=== PATIENT | female | born 2000 | race Two or more races ===

== ENCOUNTER 2022-09-02 15:53 | Emergency (ER) | payer OTHER, SELFPAY ==
[2022-09-02 17:11] VITALS: BP 105/58; PULSE 79; RESP 14; TEMP 36.4; O2SAT 98
--- NOTE | 2022-09-02 18:43 | ED.WOUNDLAC ---
HPI - Wound/Laceration General Chief Complaint: Wound/Laceration Stated Complaint: finger laceration from knife Time Seen by Provider: 09/02/22 17:22 History of Present Illness HPI narrative: 22-year-old female presents to the emergency room for evaluation of a laceration to her left third digit. Patient states that she was cutting an avocado, when the knife slipped cutting the backside of her middle finger. Patient states her tetanus status is up-to-date. Related Data Allergies Allergy/AdvReac Type Severity Reaction Status Date / Time No Known Allergies Allergy Verified 09/02/22 17:51 Review of Systems Review of Systems: CONSTITUTIONAL: Denies fever, chills, or sweats. EYES: Denies visual changes, redness, or discharge. ENT: Denies rhinorrhea, congestion, sore throat, or otalgia. CARDIOVASCULAR: Denies chest pain, palpitations, or edema. RESPIRATORY: Denies cough or dyspnea. GASTROINTESTINAL: Denies abdominal pain, nausea, vomiting, or diarrhea. GENITOURINARY: Denies dysuria or hematuria. SKIN: Reports laceration to the left third finger MUSCULOSKELETAL: Denies back pain, joint pain, or myalgia. NEUROLOGIC: Denies headache, numbness, dizziness, or weakness. PSYCHIATRIC: Denies anxiety or depression. Exam Narrative: GENERAL: Well-appearing, well-nourished, no physical limitations, and in no acute distress. HEAD: Normocephalic, atraumatic. EYES: Conjunctivae normal, PERRLA and EOMI. CHEST: Clear to auscultation. No respiratory distress. No wheezes rales or rhonchi. HEART: Regular rate and rhythm. No murmur heard. Normal peripheral pulses. EXTREMITIES: rt 3rd finger: FROM passively and actively, strength 5/5, no joint laxity to MCP joint SKIN: rt 3rd finger: 2.5 cm linear laceration to dorsal surface of base of finger. Neurovascular intact distally NEURO: No focal deficits. Alert and oriented x3. MAEW. CN's II-XI intact bilaterally, normal gait PSYCH: Cooperative. Normal mood and affect. Course Vital Signs Vital signs: Vital Signs Temperature 36.4 C L 09/02/22 17:11 Pulse Rate 79 09/02/22 17:11 Respiratory Rate 14 09/02/22 17:11 Blood Pressure 105/58 L 09/02/22 17:11 Pulse Oximetry 98 09/02/22 17:11 Oxygen Delivery Room Air 09/02/22 17:11 Temperature 36.4 C L 09/02/22 17:11 Pulse Rate 79 09/02/22 17:11 Respiratory Rate 14 09/02/22 17:11 Blood Pressure 105/58 L 09/02/22 17:11 Pulse Oximetry 98 09/02/22 17:11 Oxygen Delivery Room Air 09/02/22 17:11 Procedures Laceration Laceration 1: Date: 09/02/22 Time: 18:49 Site: upper extremity Side (If applicable): left Size (cm): 2.5 Description: linear Depth: simple, single layer Local Anesthetic: lidocaine 1% Amount of anesthesia used (mL): 5 Pre-repair: irrigated ====== Skin Level ====== Skin layer closed with: nylon Size (cm): 5-0 Number of sutures: 5 Technique: simple, interrupted ====== Subcutaneous Layer ====== ====== Muscle Layer ====== ====== Tendon Layer ====== Discharge Plan Discharge Clinical Impression: Laceration Patient Disposition: Home, Self-Care Condition: Stable Instructions: Antibiotic Form, Laceration (ED) Additional Instructions: Monitor for signs of infection which include redness, swelling, tenderness and purulent drainage. Take antibiotics as prescribed. Stitches come out in 10 days. Keep wound clean and dry and covered. Prescriptions: New cephalexin 500 mg capsule 500 mg PO Q12H 7 Days Qty: 14 0RF Follow-up/Referrals: PHYSICIAN NOT ON STAFF,NONSTAFF [Primary Care Provider] - Time of Disposition: 18:50
[2022-09-02 19:02] VITALS: BP 97/51; PULSE 64; RESP 15; O2SAT 100
== END 2022-09-02 19:04 | disposition home or self-care (01) ==
PROVIDERS: Emergency Provider Nurse Practitioner Family
DX: S61.213A Laceration without foreign body of left middle finger without damage to nail, initial encounter (principal); W26.0XXA Contact with knife, initial encounter
CPT/HCPCS: 12001; 99283

== ENCOUNTER 2023-02-20 14:56 | Emergency (ER) | payer OTHER, SELFPAY ==
[2023-02-20] VITALS (14 sets, daily range): BP systolic 108–124; BP diastolic 66–88; PULSE 78–106; RESP 12–23; TEMP 36.2; O2SAT 99–100
--- NOTE | ~2023-02-20 | XR_ITS ---
EXAMINATION: XR chest 2V DATE: 02/20/2023 16:36 INDICATION: Shortness of breath TECHNIQUE: PA and lateral views of the chest were obtained. COMPARISON: None FINDINGS: The lungs are clear with no focal airspace opacities, pulmonary edema, pleural effusion or pneumothor ax. The cardiomediastinal silhouette is normal. Mild thoracolumbar dextrocurvature. IMPRESSION: 1. No acute cardiopulmonary disease. Reviewed, dictated and finalized at location A.
--- NOTE | ~2023-02-20 | CT_ITS ---
EXAMINATION: CT soft tissue neck w con DATE: 02/20/2023 17:35 INDICATION: Neck swelling TECHNIQUE: Computed tomography (CT) of the neck was performed with 75 mL Omnipaque-350 intravenous co ntrast. Automated exposure control and iterative reconstruction technique were employed. The dose-francia gth product was 469.12 mGy-cm. COMPARISON: None FINDINGS: There is soft tissue swelling with prominent subcutaneous edema centered at the left supraclavicular region extending cephalad into the left side of the neck and caudally into the left axilla and cephal ad-most aspect of the superior mediastinum. There are multiple mildly enlarged lymph nodes in the lef t supraclavicular region and along the caudal left jugular chain. 3.3 cm enhancing left thyroid mass. Visualized mid to upper lungs are clear. No pathologically enlarged lymphadenopathy in the visualize d superior mediastinum. Visualized portion of the thoracic aorta is normal in caliber with no dissect ion. The great vessels arising from the arch and extending to the bilateral upper extremities, head a nd neck all appear normal. The trachea appears patent throughout. Normal epiglottis and prevertebral soft tissues. Bones are unremarkable. IMPRESSION: 1. Prominent soft tissue edema centered at the left supraclavicular region and extending into the the neck, left axilla and cephalad-most superior mediastinum consistent with nonspecific cellulitis. 2. Mild left supraclavicular and inferior jugular chain lymphadenopathy which is likely reactive. 3. 3.3 cm left thyroid mass. Recommend thyroid ultrasound for risk stratification. Reviewed, dictated and finalized at location A. IMPRESSION: 1. Prominent soft tissue edema centered at the left supraclavicular region and extending into the the neck, left axilla and cephalad-most superior mediastinum consistent with nonspecific cellulitis. 2. Mild left supraclavicular and inferior jugular chain lymphadenopathy which i s likely reactive. 3. 3.3 cm left thyroid mass. Recommend thyroid ultrasound for risk stratificati on.
--- NOTE | 2023-02-20 15:04 | ECG_ITS ---
Measurements Intervals [place] Rate: 93 P: 77 DE: 137 QRS: 85 QRSD: 73 T: 18 QT: 340 QTc: 425 Interpretive Statements SINUS RHYTHM NONSPECIFIC T-WAVE ABNORMALITY NO PREVIOUS ECG AVAILABLE FOR COMPARISON Electronically Signed On 02-21-2023 13:36:25 CDT by Liz Bennett M.D.
--- NOTE | 2023-02-20 15:30 | PC.NURSE ---
patient requesting a written rx if any are given out at discharge. refuse to give a pharmacy at this time
[2023-02-20 16:41] LABS: Basophils Percent Auto 0.3 % (0.2-1.2); Hematocrit 44.2 % (37.0-47.0); Hemoglobin 14.5 g/dL (12.0-15.0); Immature Granulocyte Absolute 0.06 K/mm3 (0.00-0.031); Immature Granulocyte Percent A 0.5 % (0-0.5); Lymphocytes Absolute Auto 0.94 K/mm3 (0.9-3.2); Lymphocytes Percent Auto 7.9 % (18.3-44.2); Mean Corpuscular HGB Conc 32.8 g/dl (32-36); Mean Corpuscular Hemoglobin 29.7 pg (26-34); Mean Corpuscular Volume 90.6 fl (80-100); Mean Platelet Volume 8.8 fl (7.4-10.4); Monocytes Absolute Auto 0.3 K/mm3 (0.1-0.6); Monocytes Percent Auto 2.3 % (2.6-8.5); Neutrophils Absolute Auto 10.5 K/mm3 (1.3-6.7); Platelet Count Result 281 k/mm3 (150-375); Red Blood Count 4.88 M/mm3 (4.2-5.4); Red Cell Distribution Width 13.7 % (11.5-14.5); White Blood Count 11.9 K/mm3 (4.5-10.0)
[2023-02-20 16:52] LABS: INR 0.9; Partial Thromboplastin Time 22.3 SECONDS (22.3-36.8); Prothrombin Time 12.8 Seconds (11.1-14.7)
[2023-02-20 16:55] LABS: D Dimer 0.36 ug/mL (<0.48)
[2023-02-20 16:57] LABS: Alanine Aminotransferase 110 U/L (6-35); Albumin Level 4.9 g/dL (3.5-5.1); Alkaline Phosphatase 57 U/L (38-126); Anion Gap 8 mmol/L (8-16); Aspartate Amino Transferase 78 U/L (14-36); Bilirubin,Total 0.7 mg/dL (0.2-1.3); Blood Urea Nitrogen 14 mg/dL (7-17); Calcium 9.2 mg/dL (8.4-10.2); Carbon Dioxide 26 mmol/L (22-30); Chloride 105 mmol/L (98-107); Estimated CRCL calculation 103 ml/min; Estimated Glomerular Filt Rate > 60; Glucose 102 mg/dL (65-110); Magnesium 2.2 mg/dL (1.6-2.3); Potassium 4.1 mmol/L (3.4-5.0); Sodium 139 mmol/L (137-145)
[2023-02-20 16:58] LABS: CRP 0.6 mg/dL (<1.0)
--- NOTE | 2023-02-20 17:50 | ED.NECK ---
HPI - Neck Pain/Injury General Chief Complaint: Neck Pain/Injury Stated Complaint: neck pain Time Seen by Provider: 02/20/23 15:31 Source: patient and RN notes reviewed Mode of arrival: ambulatory Limitations: no limitations History of Present Illness HPI Narrative: This is a 22 year old female with history of arrhythmia, and cardiac ablation who presents for evaluation of left neck swelling. Patient states she noticed left neck swelling and tightness today. Her swelling has improved. She reports her discomfort is worse with breathing. She reports she intermittently felt short of breath. She reports 5 years ago she had an arrhythmia that she required an ablation. She is concerned that her neck swelling has something to do with arrhythmia. Patient denies heart racing or palpitations. Related Data Allergies Allergy/AdvReac Type Severity Reaction Status Date / Time No Known Allergies Allergy Verified 02/20/23 15:28 Review of Systems Constitutional: Constitutional: Denies weakness Cardiovascular: Cardiovascular: Denies syncope, Denies rapid heart rate, Denies irregular heart rhythm, Denies leg edema and Denies dyspnea Respiratory: Respiratory: Denies chest congestion, Denies hemoptysis, Denies excessive phlegm production and Reports dyspnea Gastrointestinal: Gastrointestinal: Denies abdominal pain, Denies hematochezia, Denies diarrhea and Denies vomiting Genitourinary: Genitourinary: Denies hematuria and Denies dysuria Musculoskeletal: Musculoskeletal: Denies joint swelling, Denies loss of height and Denies muscle weakness Neurologic: Denies syncope, Denies focal weakness and Denies weakness PMFSH Past Medical History Medical History (Updated 02/21/23 @ 00:00 by [facility]) Arrhythmia Surgical History Surgical History (Updated 02/20/23 @ 18:09 by Anamaria Hinson MD) H/O cardiac radiofrequency ablation Social History Social History (Updated 02/20/23 @ 18:09 by Anamaria Hinson MD) Smoking status: Never smoker Exam Const: General: no acute distress and alert Nutritional Appearance: well nourished Orientation/consciousness: patient oriented x3 Limitations: no limitations HENMT: Head: normal to inspection Ears: external ears normal Face and sinus: normal facial exam Mouth: Yes Normal oral and palatal mucosa present Throat: posterior oropharynx normal and uvula midline Eyes: Conjunctivae: conjunctivae normal Pupils: Equal, round and reactive pupils present EOM: EOMs intact bilaterally Neck: Neck: normal visual inspection, no lymphadenopathy and no meningeal signs Chest: Chest palpation & inspection: normal inspection of the chest Resp: Effort & Inspection: normal respiratory effort Auscultation: clear to auscultation bilaterally Cardio: Rate: regular rate Rhythm: regular rhythm Heart sounds: no murmurs GI: GI Palp: Yes Soft to palpation, No Tenderness to palpation present (GI), No Guarding due to palpation present (GI) and No Rigid due to palpation Auscultation: normal bowel sounds Skin: General skin exam: normal color Rashes: no rashes Wounds: no wounds Neuro: General: patient oriented x3 and moves all extremities Cranial nerves: Yes Nystagmus not present Speech: normal speech Extrem: General: normal to inspection Psych: Mental Status: mental status grossly normal Affect: normal affect Attitude: cooperative Course Reevaluation(s) Reevaluation #1: I Discussed with patient that CT showing possible cellulitis. She does not have redness. She does have elevated wbc so will start on antibiotics. I also discussed thyroid mass that she will need to have evaluated. She request disc so one was ordered. Date: 02/20/23 Time: 18:35 Vital Signs Vital signs: Vital Signs Temperature 97.2 F L 02/20/23 14:58 Pulse Rate 106 H 02/20/23 14:58 Respiratory Rate 14 02/20/23 14:58 Blood Pressure 124/79 02/20/23 14:58 Pulse Oximetry 100 02/20/23 14:58 Oxygen Del
== END 2023-02-20 18:55 | disposition home or self-care (01) ==
PROVIDERS: Emergency Provider General Practice
DX: R22.1 Localized swelling, mass and lump, neck (principal); E07.89 Other specified disorders of thyroid; R93.89 Abnormal findings on diagnostic imaging of other specified body structures
CPT/HCPCS: 36415; 70491; 71046; 80053; 83735; 85025; 85380; 85610; 85730; 86140; 93005; 99284; Q9967